=== PATIENT | male | born 1945 | race Caucasian/White ===

== ENCOUNTER 2022-09-28 12:44 | Inpatient (IN) | payer MEDICARE, OTHER ==
[~2022-09-28] VITALS: Ht 170.2 cm; Wt 52.2 kg
[~2022-09-28 12:44] MED LIST: ACET-3117 PO; AMIO200T5 PO; ATOR40TA PO; CHLO25TA2 PO; EMPA10TA PO; HYDR-894 PO; LEVO25TA9 PO; LISI10TA29 PO; MELA3CAP2 PO; METF-440 PO; METO50TA16 PO; MULT-213 PO; OXYB10TA30 PO; PANT40TA49 PO; SENN-18 PO; SITA100T PO; SODI100010 PO; TAMS-3 PO
[2022-09-28] MEDS ORDERED: RISP1TAB69 PO (13:33)
[2022-09-28] MEDS ORDERED: RISP2TAB PO (13:34)
[2022-09-28] MEDS ORDERED: TEMA7.5C PO (13:35)
[2022-09-28] MEDS ORDERED: LORA-258 PO (13:37)
[2022-09-28] MEDS ORDERED: BENZ0.5T43 PO (13:48)
[2022-09-28] MEDS ORDERED: DIVA125C5 PO (13:49)
[2022-09-28] MEDS ORDERED: MAG-55 PO (13:50)
[2022-09-28] MEDS ORDERED: LINA5TAB PO (13:52)
--- NOTE | 2022-09-28 14:00 | NUR ---
Received report from John GREEN in [facility]. Informed Scott Merida in person of the patients arrival and by text twice. Awaiting orders. Patient is lethargic and responsive to loud voices or pain. Patient has stable VS and is pale and cool to the touch. IV started with fluids as ordered. Skin is intact.
[2022-09-28 16:00] VITALS: BP 109/89; TEMP 98.3; O2SAT 96
--- NOTE | 2022-09-28 16:16 | NUR ---
KEENAN Transfer Note: KEENAN spoke with pt's sister, Hanny [phone] and informed her that pt is accepted to [facility] ([phone]) [address] [place] [address] upon discharge. KEENAN spoke with [facility] Carmencita [phone] and admin, Kayleigh [phone] who confirmed pt's acceptance upon discharge. KEENAN informed pt's sister Hanny that her requested two facilities are not able to accept the pt at this time. Hanny is grateful for the effort and agreeable to [place].
[2022-09-28] MEDS ORDERED: OLANZAPINE 10 MG VIAL IM PRN (16:45)
[2022-09-28] MEDS: GLUCERNA SHAKE 237 ML CAN PO SCH (17:00)
[2022-09-28] MEDS ORDERED: REMEDY ESSENTIAL ZINC PASTE 113 GM TP PRN (19:00)
[2022-09-28] MEDS ORDERED: ONDANSETRON 4 MG/2 ML VIAL IV PRN (19:00)
[2022-09-28] MEDS ORDERED: TEMAZEPAM 7.5 MG CAPSULE PO PRN (19:00)
[2022-09-28] MEDS ORDERED: ACETAMINOPHEN 325 MG TABLET PO PRN ×2 (19:00→19:30)
[2022-09-28] MEDS ORDERED: LORAZEPAM 0.5 MG TABLET PO PRN (19:00)
[2022-09-28] MEDS ORDERED: DEXTROSE 50% 50 ML DISP.SYRIN IV PRN (19:15)
[2022-09-28] MEDS: IV LACTATED RINGERS SOLUTION 1,000 ML IV PRN (19:15)
[2022-09-28 20:00] VITALS: BP 97/65; TEMP 98; O2SAT 95
--- NOTE | 2022-09-28 20:00 | NUR ---
NSG: Received patient lying in bed. patient is confused and disoriented. no c/o pain or discomfort at this time. blood sugar 147mg/dl. insulin sliding coverage given. hs snack given after insulin given. compliant with medication. assisted with adl's. turn q 2 hrs for skin safety. 1:1 sitter @ bedside. call light w/in reach.
[2022-09-28] MEDS: ATORVASTATIN 40 MG TABLET PO SCH (20:23)
[2022-09-28] MEDS: HEPARIN SODIUM,PORCINE 5,000 UNITS/ML VIAL SQ SCH (20:26)
[2022-09-28] MEDS: BLOOD SUGAR DIAGNOSTIC 1 EACH STRIP VI SCH (20:26)
[2022-09-28] MEDS: INSULIN REGULAR, HUMAN 300 UNIT/3 ML VIAL SQ PRN (20:27)
[2022-09-29] MEDS: IV LACTATED RINGERS SOLUTION 1,000 ML IV PRN ×2 (03:05→15:30)
[2022-09-29 04:24] VITALS: BP 111/72; TEMP 98.4; O2SAT 93
--- NOTE | 2022-09-29 04:43 | NUR ---
NSG: Remain confused and disoriented through the night. continue on 1:1 sitter @ bedside for safety. assisted with adl's. good swati care given. encouraged po fluid and food. kept clean and dry. call light w/in reach.
--- NOTE | 2022-09-29 06:01 | NUR ---
NSG: SLEPT 7.45 HRS THROUGH THE NIGHT.
[2022-09-29] MEDS: LEVOTHYROXINE SODIUM 25 MCG TABLET PO SCH (06:11)
[2022-09-29] MEDS: PANTOPRAZOLE SODIUM 40 MG TABLET.DR PO SCH (06:11)
[2022-09-29] MEDS: BLOOD SUGAR DIAGNOSTIC 1 EACH STRIP VI SCH ×4 (06:25→22:00)
[2022-09-29 07:09] LABS: HEMATOCRIT 29.9 % (36.7-47.1); MEAN CORPUSCULAR HEMOGLOBIN 33.9 uug (23.8-33.4); MEAN CORPUSCULAR VOLUME 97.5 fL (73.0-96.2); PLATELET COUNT (AUTO) 194 K/uL (152-348)
[2022-09-29 08:00] VITALS: BP 126/62; TEMP 97.6; O2SAT 98
[2022-09-29] MEDS: GLUCERNA SHAKE 237 ML CAN PO SCH ×2 (08:00→18:13)
[2022-09-29 08:23] LABS: CARBON DIOXIDE 31 mmol/L (21-32); CHLORIDE 107 mmol/L (98-107); CREATININE 1.3 mg/dL (0.6-1.3); GLUCOSE 146 mg/dL (74-106); MAGNESIUM 1.7 mg/dL (1.8-2.4); POTASSIUM 3.9 mmol/L (3.5-5.1); UREA NITROGEN, BLOOD 49 mg/dL (7-18)
[2022-09-29] MEDS: HEPARIN SODIUM,PORCINE 5,000 UNITS/ML VIAL SQ SCH ×2 (08:53→22:01)
[2022-09-29] MEDS: SODIUM CHLORIDE 1,000 MG TABLET PO SCH ×2 (08:56→16:52)
[2022-09-29] MEDS: LINAGLIPTIN 5 MG TABLET PO SCH (08:56)
[2022-09-29] MEDS: AMIODARONE HCL 200 MG TABLET PO SCH (08:56)
[2022-09-29] MEDS ORDERED: NEOMY/BACITRA/POLYMYXIN B OINT UD PACKET TP SCH (09:00)
[2022-09-29] MEDS ORDERED: LISINOPRIL 10 MG TABLET PO SCH (09:00)
--- NOTE | 2022-09-29 09:00 | NUR ---
REMAIN ON 30 DAY HOLD ORDERED WITH ONE ON ONE SITTER PER PROTOCOL REPOSITIONED IVF IN PROGRESS ORDERED.ASSISTED WITH MEALS WITH GOOD APPETITE MADE COMFORTABLE WILL CONTINUE TO OBSERVE.
[2022-09-29] MEDS: METOPROLOL TARTRATE 50 MG TABLET PO SCH (09:08)
[2022-09-29] MEDS ORDERED: MAGNESIUM OXIDE 400 MG TABLET PO ONE (09:45)
[2022-09-29] MEDS: NEOMY/BACITRAC/POLYMI OINT 28.35 GM TUBE TP SCH (09:53)
[2022-09-29 11:57] LABS: *CREATININE,URINE 101.6 mg/dL (30-125); *URINE TOTAL PROTEIN RANDOM 32.4 mg/dL (<150/24HR)
[2022-09-29 12:02] VITALS: BP 120/55; TEMP 97.8; O2SAT 97
[2022-09-29 12:02] LABS: *BILIRUBIN,URIN NEGATIVE (NEGATIVE); *BLOOD, URINE NEGATIVE (NEGATIVE); *CLARITY,URINE CLEAR (CLEAR); *COLOR,URINE YELLOW (YELLOW); *KETONES,URINE NEGATIVE (NEGATIVE); *UROBILINOGEN,URINE 0.2 E.U./dl (NORMAL); LEUKOCYTE ESTERASE ,URINE TRACE (NEGATIVE); NITRITE, URINE NEGATIVE (NEGATIVE); UGLUCOSE NEGATIVE (NEGATIVE)
[2022-09-29] MEDS: INSULIN REGULAR, HUMAN 300 UNIT/3 ML VIAL SQ PRN (12:22)
[2022-09-29] MEDS: risperiDONE-M 0.5 MG TAB.RAPDIS PO SCH ×3 (12:38→22:06)
--- NOTE | 2022-09-29 13:30 | NUR ---
NEW ORDER NOTED FROM DR GALLEGOS TO CANCEL THE 30 DAY HOLD AND NOTED.
[2022-09-29 15:27] LABS: BACTERIA,URINE MANY /HPF (NONE SEEN); RBC,URINE 0-3 /HPF (0-3); SQUAMOUS EPITHELIAL CELL,UR FEW /HPF (NONE SEEN); WBC,URINE 20-50 /HPF (0-3)
[2022-09-29 15:46] VITALS: BP 108/51; TEMP 97.7; O2SAT 98
--- NOTE | 2022-09-29 18:00 | NUR ---
CONFUSED DISORIENTED ALL NEEDS ANTICIPATED AND SATISFIED MAX ASSIST FOR ALL ADL TURNED AND REPOSITIONED Q2H ON ROOM AIR WITH NO SOB IVF ORDERED WITH NO S/S OF INFILTERATION ON SITE NO S/S OF HYPO/HYPERGLYCEMIC REACTIONS AT THIS TIME APPETITE IS GOOD ATE 100 PERCENT OF MEALS TODAY COMPLIANT WITH MEDICATIONS GETS UNCOOPERATIVE AT TIMES WITH CARE.WILL CONTINUE TO OBSERVE.
[2022-09-29 20:00] VITALS: BP 100/53; TEMP 97.9; O2SAT 98
[2022-09-29] MEDS: ATORVASTATIN 40 MG TABLET PO SCH (22:00)
[2022-09-29] MEDS: TAMSULOSIN HCL 0.4 MG CAP.SR.24H PO SCH (22:00)
[2022-09-30] MEDS: IV LACTATED RINGERS SOLUTION 1,000 ML IV PRN (05:10)
[2022-09-30 05:58] VITALS: BP 124/50; TEMP 98.3; O2SAT 95
[2022-09-30] MEDS: PANTOPRAZOLE SODIUM 40 MG TABLET.DR PO SCH (06:30)
[2022-09-30] MEDS: LEVOTHYROXINE SODIUM 25 MCG TABLET PO SCH (06:30)
[2022-09-30] MEDS: BLOOD SUGAR DIAGNOSTIC 1 EACH STRIP VI SCH ×5 (06:50→21:25)
[2022-09-30 07:09] LABS: HEMATOCRIT 26.1 % (36.7-47.1); MEAN CORPUSCULAR HEMOGLOBIN 33.8 uug (23.8-33.4); MEAN CORPUSCULAR VOLUME 96.7 fL (73.0-96.2); PLATELET COUNT (AUTO) 105 K/uL (152-348)
[2022-09-30 07:20] LABS: CARBON DIOXIDE 29 mmol/L (21-32); CHLORIDE 104 mmol/L (98-107); CREATININE 0.9 mg/dL (0.6-1.3); GLUCOSE 190 mg/dL (74-106); MAGNESIUM 1.6 mg/dL (1.8-2.4); PHOSPHOROUS 2.4 mg/dL (2.5-4.9); POTASSIUM 3.8 mmol/L (3.5-5.1); UREA NITROGEN, BLOOD 26 mg/dL (7-18)
--- NOTE | 2022-09-30 07:30 | NUR ---
REPORT GIVEN TO PETER QUINN
[2022-09-30] MEDS: GLUCERNA SHAKE 237 ML CAN PO SCH ×2 (08:09→17:22)
[2022-09-30] MEDS: MAGNESIUM SULFATE/D5W 100 ML IV SCH ×3 (08:48→10:58)
[2022-09-30 08:59] VITALS: BP 172/76; TEMP 97.8
[2022-09-30] MEDS: HEPARIN SODIUM,PORCINE 5,000 UNITS/ML VIAL SQ SCH (09:00)
[2022-09-30] MEDS: AMIODARONE HCL 200 MG TABLET PO SCH (09:39)
[2022-09-30] MEDS: SODIUM CHLORIDE 1,000 MG TABLET PO SCH ×2 (09:39→17:23)
[2022-09-30] MEDS: CEFTRIAXONE 1 G in IV DEXTROSE 5% 50 ML IV SCH (09:39)
[2022-09-30] MEDS: LINAGLIPTIN 5 MG TABLET PO SCH (09:40)
[2022-09-30] MEDS: NEOMY/BACITRAC/POLYMI OINT 28.35 GM TUBE TP SCH (09:41)
[2022-09-30] MEDS: risperiDONE-M 0.5 MG TAB.RAPDIS PO SCH ×3 (09:41→21:24)
[2022-09-30] MEDS: METOPROLOL TARTRATE 50 MG TABLET PO SCH (09:44)
[2022-09-30] MEDS ORDERED: hydrALAZINE HCL 20 MG/1 ML VIAL IV PRN (11:00)
[2022-09-30] MEDS ORDERED: PERMETHRIN 5% CREAM 60 GM TUBE TP ONE ×2 (11:30→15:00)
[2022-09-30 11:45] VITALS: BP 128/57; TEMP 98.2; O2SAT 96
[2022-09-30] MEDS: INSULIN REGULAR, HUMAN 300 UNIT/3 ML VIAL SQ PRN ×2 (12:26→17:28)
--- NOTE | 2022-09-30 15:00 | NUR ---
Elimite 5% cream administered at 1220PM. 1500 order is duplicate Pharmacy notified.
[2022-09-30 16:00] VITALS: BP 139/59; TEMP 98.4; O2SAT 97
[2022-09-30] MEDS ORDERED: NEUTRA PHOS PACKET PO ONE (17:00)
[2022-09-30 20:00] VITALS: BP 129/65; TEMP 98.1; O2SAT 95
[2022-09-30] MEDS: ATORVASTATIN 40 MG TABLET PO SCH (21:24)
[2022-09-30] MEDS: TAMSULOSIN HCL 0.4 MG CAP.SR.24H PO SCH (21:24)
--- NOTE | 2022-09-30 23:00 | NUR ---
Received patient awake, confused, sleep intermittently, no sob no chest pain, Patient slightly restless, appear uncomfortable, turn and reposition, kept clean and dry, remain in contact isolation for skin rashes/scabies, cont to monitor.
[2022-10-01 04:00] VITALS: BP 125/60; TEMP 98.1; O2SAT 96
--- NOTE | 2022-10-01 04:52 | NUR ---
Patient asleep but arousable, sleeping meds effective, no s/s of pain nor discomfort. Patient remains on contact isolation for scabies, no scratching noted at this time, cont to monitor.
[2022-10-01] MEDS: PANTOPRAZOLE SODIUM 40 MG TABLET.DR PO SCH (06:15)
[2022-10-01] MEDS: BLOOD SUGAR DIAGNOSTIC 1 EACH STRIP VI SCH ×2 (06:15→12:10)
[2022-10-01] MEDS: LEVOTHYROXINE SODIUM 25 MCG TABLET PO SCH (06:15)
[2022-10-01 07:29] LABS: HEMATOCRIT 28.4 % (36.7-47.1); MEAN CORPUSCULAR HEMOGLOBIN 33.7 uug (23.8-33.4); MEAN CORPUSCULAR VOLUME 98.2 fL (73.0-96.2); PLATELET COUNT (AUTO) 143 K/uL (152-348)
[2022-10-01 07:46] LABS: BILIRUBIN,TOTAL 0.3 mg/dL (0.2-1.0); CREATININE 0.8 mg/dL (0.6-1.3); PHOSPHOROUS 2.4 mg/dL (2.5-4.9); POTASSIUM 3.9 mmol/L (3.5-5.1); TOTAL PROTEIN, SERUM 5.6 g/dL (6.4-8.2)
[2022-10-01 08:29] LABS: MAGNESIUM 1.1 mg/dL (1.8-2.4)
[2022-10-01] MEDS: GLUCERNA SHAKE 237 ML CAN PO SCH (08:36)
[2022-10-01] MEDS ORDERED: MAGNESIUM OXIDE 400 MG TABLET PO ONE (08:45)
[2022-10-01] MEDS ORDERED: MAGNESIUM SULFATE/D5W 100 ML IV SCH (08:45)
[2022-10-01] MEDS: NEOMY/BACITRAC/POLYMI OINT 28.35 GM TUBE TP SCH (09:00)
[2022-10-01] MEDS: LINAGLIPTIN 5 MG TABLET PO SCH (09:32)
[2022-10-01] MEDS: risperiDONE-M 0.5 MG TAB.RAPDIS PO SCH (09:32)
[2022-10-01] MEDS: SODIUM CHLORIDE 1,000 MG TABLET PO SCH (09:32)
[2022-10-01] MEDS: CEFTRIAXONE 1 G in IV DEXTROSE 5% 50 ML IV SCH (09:33)
[2022-10-01] MEDS: MAGNESIUM SULFATE/D5W 100 ML IV SCH ×2 (11:04→12:14)
[2022-10-01] MEDS: METOPROLOL TARTRATE 50 MG TABLET PO SCH (11:07)
[2022-10-01] MEDS: AMIODARONE HCL 200 MG TABLET PO SCH (11:07)
[2022-10-01 11:53] VITALS: BP 99/37; TEMP 97.6; O2SAT 95
[2022-10-01] MEDS: INSULIN REGULAR, HUMAN 300 UNIT/3 ML VIAL SQ PRN (12:43)
--- NOTE | 2022-10-01 14:40 | NUR ---
PT DISCHARGED: Pt left unit via gurney accompanied by 2 director physical from [facility]. Pt did not have any belongings or home medications. VSS, no s/s of distress noted. Report called in to HAVEN Escamilla at [facility] [place] at 1418. Confirmed with Katelin Montoya NP that pt is done with scabies contact isolation, notified JASPREET Escamilla and SW of this prior to d/c. Pt clean and appeared comfortable (no facial grimace, relaxed limbs) and was cooperative upon discharge. Addendum: 10/01/22 at 1708 by ELANA DURAN RN IV line in Right wrist 22g left in pt's arm because pt will continue 7 more days of Rocephin 1g IV PCP aware, endorsed to HAVEN Antunez. And the is a Urine Culture pending PCP aware, endorsed to HAVEN Antunez.
[2022-10-01] MEDS ORDERED: NEUTRA PHOS PACKET PO ONE (16:30)
== END 2022-10-01 14:40 | DRG 682 ==
LOC: MEDSURG3 12:44
PROVIDERS: ADMIT Nurse Practitioner Family; ATTEND Nurse Practitioner Acute Care
DX: N17.0 Acute kidney failure with tubular necrosis (principal); E43 Unspecified severe protein-calorie malnutrition; G92.8 Other toxic encephalopathy; N39.0 Urinary tract infection, site not specified; Z68.1 Body mass index [BMI] 19.9 or less, adult; R64 Cachexia; R62.7 Adult failure to thrive; B86 Scabies; D53.9 Nutritional anemia, unspecified; E03.9 Hypothyroidism, unspecified; E11.9 Type 2 diabetes mellitus without complications; E78.5 Hyperlipidemia, unspecified; Z86.73 Personal history of transient ischemic attack (TIA), and cerebral infarction without residual deficits; I10 Essential (primary) hypertension; F31.9 Bipolar disorder, unspecified; F20.9 Schizophrenia, unspecified; D75.829 Heparin-induced thrombocytopenia, unspecified; D63.8 Anemia in other chronic diseases classified elsewhere; E83.42 Hypomagnesemia; Z20.822 Contact with and (suspected) exposure to COVID-19; T46.4X5A Adverse effect of angiotensin-converting-enzyme inhibitors, initial encounter; Y92.89 Other specified places as the place of occurrence of the external cause; Z79.84 Long term (current) use of oral hypoglycemic drugs; F03.90 Unspecified dementia, unspecified severity, without behavioral disturbance, psychotic disturbance, mood disturbance, and anxiety
CPT/HCPCS: 36415; 71045; 76770; 83735; 84100; 84300; 85025; A4663; A6209; A6213; G0378; J0696; J1644; J1815; J3475; J7120